=== PATIENT | male | born 1945 | race Caucasian/White ===

== ENCOUNTER → 2017-08-25 | Outpatient (CLI) | payer MEDICARE, OTHER ==
[~2017-08-25] MED LIST: ADVICOR 20 MG-51 TER PO; CHEWABLE ASPIRI81 MG; DOXAZOSIN2 MG; KLOR-CON M2020 MEQ PO; LISINOPRIL5 MG PO; METOPROLOL50 MG PO; NITROGLYCERIN0.4 MG SL; PRAVASTATIN 40M40 MG PO
--- NOTE | 2017-08-26 10:22 | RADIOLOGY REPORT PS360 ---
US [id number] COMPARISON: None HISTORY: Patient with known chronic renal disease TECHNIQUE: Targeted ultrasound the kidneys FINDINGS: Right kidney measures 11.0 x 6.2 x 6.3 cm. There is no specific cortical thinning and there is a fairly good cortical medullary junction and there is no hydronephrosis. There is good vascularity to the kidney. The left kidney measures 12.0 x 5 point for x 4.7 cm. Again there is no significant cortical thinning and there is a good cortical medullary junction with no hydronephrosis. There is good vascularity to the left kidney. IMPRESSION: Grossly negative ultrasound the kidneys bilaterally
== END ==
LOC: RAD 13:01
DX: N18.2 Chronic kidney disease, stage 2 (mild) (principal)